=== PATIENT | female | born 1945 | race Caucasian/White ===

== ENCOUNTER → 2021-05-05 | Outpatient (CLI) | payer MEDICARE | LOC: MAMO 15:00 | DX: Z12.31 Encounter for screening mammogram for malignant neoplasm of breast (principal) | CPT/HCPCS: 77063; 77067 ==

== ENCOUNTER → 2021-06-05 | Outpatient (CLI) | payer MEDICARE | LOC: EXRD 14:35 | DX: J98.6 Disorders of diaphragm (principal); M54.50 Low back pain, unspecified; G89.29 Other chronic pain; M79.641 Pain in right hand; M18.9 Osteoarthritis of first carpometacarpal joint, unspecified; R93.6 Abnormal findings on diagnostic imaging of limbs; M51.36 Other intervertebral disc degeneration, lumbar region | CPT/HCPCS: 71046; 72110; 73130 ==

== ENCOUNTER → 2021-08-08 | Outpatient (CLI) | payer MEDICARE | LOC: EXRD 08-03 14:00 | DX: Z13.820 Encounter for screening for osteoporosis (principal); Z78.0 Asymptomatic menopausal state | CPT/HCPCS: 77080 ==